=== PATIENT | male | born 1950 | race African-American/Black ===

== ENCOUNTER → 2020-01-20 | Day surgery (SDC) | payer MEDICARE, OTHER ==
[~2020-01-20] MED LIST: ACETAMINOPHEN/CODEINE 300MG - 30MG TAB ONE; ASPIRIN81 MG PO; CARVEDILOL12.5 MG PO; CIALIS5 MG PO; DEXAMETHASONE SOD PHOS INJ 4 MG/ML VIAL ONE; FENTANYL CITRATE/PF 100MCG/2 ML INJ ONE; GLIMEPIRIDE2 MG PO; HYDRALAZINE HCL10 MG PO; LIDOCAINE 1% W/EPINEPHRINE 20 ML VIAL ONE; LIDOCAINE HCL 2% LOCAL INJ 5 ML SDV VIAL INJ ONE; METFORMIN HCL1000 MG PO; MIDAZOLAM HCL 2 MG/2 ML VIAL ONE; NIFEDIPINE10 MG PO; ONDANSETRON HCL INJ 2MG/ML 2ML 2 MG/ML VIAL ONE; PANTOPRAZOLE SO40 MG PO; PROPOFOL IV EMULSION 10 MG/ML 20 ML VIAL ONE; ROCURONIUM BROMIDE 10 MG/ML 5ML VIAL ONE; SEVOFLURANE INHAL SOLN 250 ML PEN BTL ONE; SUGAMMADEX SODIUM 200 MG/2 ML VIAL IV ONE; TOVIAZ4 MG PO
--- NOTE | 2020-01-20 06:55 | Pre Op History & Physical ---
DATE OF SURGERY: January 20, 2020. CHIEF COMPLAINT: Lesion in the left upper lip. HISTORY OF PRESENT ILLNESS: This 69-year-old male, who has noticed a lesion in the left upper lip for about two years. The lesion has been coming and going, but has never gone away. The patient denies any dysphagia, odynophagia, or shortness of breath. The lesion has no pain. He denies any trauma to that area. The patient is a nonsmoker and nondrinker. REVIEW OF SYSTEMS: System review showed no recent cardiovascular, respiratory, or GI problem. PAST MEDICAL HISTORY: He has type 2 diabetes and hypertension. PAST SURGICAL HISTORY: The patient has previous prostate TURP, and neck surgery. ALLERGIES: HE HAS NO KNOWN ALLERGY TO MEDICATION. MEDICATIONS: He is on Januvia, glimepiride, hydralazine, losartan, metformin, carvedilol, , nifedipine, and pantoprazole. SOCIAL HISTORY: Nonsmoker, nondrinker. FAMILY HISTORY: Noncontributory. PHYSICAL EXAMINATION: VITAL SIGNS: The patient's vital signs were within normal limits. HEENT: Ear exam showed normal tympanic membrane bilaterally. Nasal exam showed hypertrophy of the inferior turbinate. Oropharynx and oral cavity show 2+ tonsils. The patient has a subcutaneous lesion in the paramedian left upper lip about 2.5 cm. No other abnormality was noted. CHEST: Showed good air entry bilaterally. CARDIOVASCULAR: Showed S1, S2. No murmur noted. TRADESHOW WORKER: Cranial nerves II through XII were within normal limits. ASSESSMENT AND PLAN: Mr. Gutierrez has a lesion in the left upper lip, which has been resistant to conservative therapy. The suggested treatment is panendoscopy with microlaryngoscopy, biopsy and excisional biopsy of lesion and other necessary procedure. Complication of procedure includes, but not limited to bleeding, infection, oral cutaneous fistula, poor cosmetic result, wound breakdown, perforation of the esophagus, pneumomediastinum, mediastinitis, airway compromise, persistent recurrence of the problem. The alternate will be continue observation. Excision of biopsy of the lesion in the office setting. The patient and his has elected to undergo surgical procedure. Aaron Fair MD DKH/MODL /[id number] cc: Dr. Veto Marin
--- NOTE | 2020-01-20 09:07 | Diagnostic Imaging Report ---
EXAMINATION: CHEST 2 VIEWS INDICATION: Pre-operative COMPARISON: None FINDINGS: LINES/TUBES:None LUNGS:The lungs are well-inflated. No focal consolidation or pulmonary edema. PLEURA:No pleural effusion or pneumothorax. MEDIASTINUM:The cardiomediastinal silhouette appears normal in size and shape. BONES/SOFT TISSUES:No acute osseous injury. Partially visualized cervical spine fusion hardware. ABDOMEN:No free air under the diaphragm. IMPRESSION: No focal pneumonia or pulmonary edema. Signed by: Jaycob Jj MD on 01/20/2020 9:04 AM
[2020-01-20 11:37] VITALS: BP 136/81
--- NOTE | 2020-01-21 00:09 | Operative Report ---
DATE OF PROCEDURE: 01/20/2020 SURGEON: Aaron Fair MD CHIEF COMPLAINT: Lesion in the left upper lip. POSTOPERATIVE DIAGNOSIS: Lesion in the left upper lip. OPERATIVE PROCEDURES: Excision of left upper lip lesion with appropriate closure. Direct laryngoscopy, rigid esophagoscopy, rigid bronchoscopy, microlaryngoscopy, and biopsy of the midline tongue base. ANESTHESIA: Anesthesiology group. INDICATIONS: This 69-year-old male was noted to have a lesion in the left upper lip for a few years. The lesion has been increasing in size. The patient finds the lesion was not painful. He has no other functional problems with it. The lesion is in the submucosal area in the upper lip paramedian to the left. The size of it was about 1-1/2 to 2 cm. It was decided that excisional biopsy of the lesion with flap reconstruction and panendoscopy, microlaryngoscopy, and biopsy and other necessary procedure will be beneficial for him. DESCRIPTION OF PROCEDURE: The patient was taken to the operating room, put under general anesthesia, endotracheally intubated. The lip lesion was addressed first. The upper lip was rotated superiorly and mucosal service come into view. The area was injected with 1% Xylocaine with 1:100,000 epinephrine for hemostasis. An incision was made at the distal portion of the lesion and a mucosal flap was elevated on the lesion. The lesion come into view. The lesion was dissected from the orbicularis yovani muscle. This was sent for permanent section. Hemostasis during the procedure was achieved using the Bovie. Closure of the area was undertaken. The area was irrigated with copious amount of normal saline. The mucosal flap that was elevated was rotated into place and closed to the opposing side using buried 4-0 Monocryl suture in an interrupted fashion. The rigid esophagoscopy was performed. The patient was repositioned. The esophagoscope was passed through the cricopharyngeus muscle. Esophagus was examined to about 25 cm from the incisors, no abnormality was noted. The esophagoscope was retrieved. The rigid bronchoscopy was performed. A size #4 bronchoscope with Zelaya wire was used. Bronchoscope was passed parallel to the endotracheal tube. The endotracheal tube cuff was deflated. The trachea was examined down to the jyotsna. No abnormality was noted. The bronchoscope was retrieved. The endotracheal tube cuff was reinflated. The direct laryngoscopy was performed. A Wil laryngoscope was used. Oropharynx and oral cavity were examined. No abnormality was noted. The piriform sinus on either side was examined. No abnormality was noted. The larynx was examined. Both the true and false vocal folds were examined. No obvious abnormality was noted. Microlaryngoscopy was performed. The laryngoscope was put on suspension and the operating microscope brought in. The larynx again was re-examined and no other abnormality was noted. At the removal of the laryngoscope, increased lymphoid tissue was noted in the midline tongue base. This was biopsied using cup forceps. This was sent for permanent section. The patient tolerated the above procedure well with minimal blood loss. He was given 20 mg of Decadron intraoperatively. The patient was able to be transferred to recovery room in stable condition. MD PETEY Barr/MODL /[id number]
== END | disposition home or self-care (01) ==
LOC: OR 06:58
PROVIDERS: ATTEND Otolaryngology Otolaryngology/Facial Plastic Surgery
DX: C00-D49 Neoplasms (principal); E11.9 Type 2 diabetes mellitus without complications; I10 Essential (primary) hypertension; Z79.84 Long term (current) use of oral hypoglycemic drugs; Z79.82 Long term (current) use of aspirin
CPT/HCPCS: 14060; 31536; 31622; 36415; 43191; 71046; 82948; 88305; 93005; J1100; J2001; J2250; J2405; J2704; J3010